=== PATIENT | female | born 1980 | race Caucasian/White ===

== ENCOUNTER 2018-09-22 12:35 | Inpatient (IN) | payer OTHER ==
[2018-09-22] MEDS ORDERED: METHYLERGONOVINE 0.2 MG INJ IM ×2 (13:30→21:00)
[2018-09-22] MEDS ORDERED: MISOPROSTOL 200 MCG TAB PR ×2 (13:30→21:00)
[2018-09-22] MEDS ORDERED: OXYTOCIN 30 UNITS/LR 500 ML IV ×2 (13:30→21:00)
[2018-09-22] MEDS ORDERED: CARBOPROST 250 MCG INJ IM ×2 (13:30→21:00)
[2018-09-22 13:42] LABS: ADD MAN DIFF? NO
[2018-09-22 13:44] LABS: BASOPHILS % 0.6 % (0.0-2.0); EOSINOPHILS # 0.1 10^3/ul (0.0-0.5); EOSINOPHILS % 1.7 % (0.0-7.0); HEMATOCRIT 32.4 % (37.0-47.0); HEMOGLOBIN 10.9 g/dl (12.0-16.0); LYMPHOCYTES # 1.3 10^3/ul (0.8-2.9); LYMPHOCYTES % 24.1 % (15.0-51.0); MEAN CORPUSCULAR HEMOGLOBIN 26.4 pg (29.0-33.0); MEAN CORPUSCULAR HGB CONC 33.6 g/dl (32.0-37.0); MEAN CORPUSCULAR VOLUME 78.5 fl (82.0-101.0); MEAN PLATELET VOLUME 10.2 fl (7.4-10.4); MONOCYTE # 0.4 10^3/ul (0.3-0.9); MONOCYTES % 7.9 % (0.0-11.0); NEUTROPHIL # 3.4 10^3/ul (1.6-7.5); NEUTROPHILS % 65.5 % (39.0-77.0); PLATELET COUNT 214 10^3/UL (140-415); RED BLOOD COUNT 4.13 10^6/ul (4.20-5.40); RED CELL DISTRIBUTION WIDTH 17.7 % (11.5-14.5)
[2018-09-22 13:44] LABS: WHITE BLOOD COUNT 5.2 10^3/ul (4.8-10.8)
[2018-09-22] MEDS: LACTATED RINGER'S 1,000 ML IV ×4 (13:50→20:34)
[2018-09-22 14:03] LABS: INR 0.84; PROTIME 11.6 Sec (11.9-14.9); PT RATIO 0.9
[2018-09-22 14:04] LABS: PARTIAL THROMBOPLASTIN TIME 22.6 Sec (23.0-35.0)
[2018-09-22] MEDS: CITRIC ACID/NA CITRATE 30 ML CUP PO (17:03)
[2018-09-22] MEDS: ONDANSETRON 4 MG INJ IV (17:04)
[2018-09-22] MEDS ORDERED: PHENYLephrine (100 MCG/ML) 10ML SYG (17:18)
[2018-09-22] MEDS ORDERED: OXYTOCIN 10 UNIT INJ (17:19)
[2018-09-22] MEDS ORDERED: morphine SULFATE/PF (10 MG/10 ML) INJ (17:19)
[2018-09-22] MEDS ORDERED: DEXAMETHASONE 4 MG/ML 1 ML INJ (17:41)
[2018-09-22] MEDS ORDERED: KETOROLAC 30 MG INJ (17:41)
[2018-09-22] MEDS ORDERED: ONDANSETRON 4 MG INJ (17:41)
[2018-09-22] MEDS ORDERED: MEPERIDINE 100 MG INJ (17:41)
[2018-09-22] MEDS ORDERED: METOCLOPRAMIDE 10 MG INJ (17:41)
[2018-09-22] MEDS: OXYTOCIN 30 UNITS/LR 500 ML IV ×2 (18:17→20:50)
[2018-09-22] MEDS: CEFAZOLIN 2 GM/50 ML (PMX) 50 ML IVPB (18:47)
[2018-09-22 19:37] LABS: HEPATITIS B SURFACE ANTIGEN NEGATIVE (NEGATIVE)
[2018-09-22] MEDS ORDERED: NA PHOSPHATE/BIPHOS 133 ML ENEMA PR (21:00)
[2018-09-22] MEDS ORDERED: HYDROCODONE/APAP (5/325) TAB PO ×2 (21:00→23:00)
[2018-09-22] MEDS ORDERED: NACL 0.9% 3 ML SYG IV (21:00)
[2018-09-22] MEDS ORDERED: IBUPROFEN 800 MG TAB PO (22:00)
[2018-09-22 22:31] LABS: RAPID PLASMA REAGIN NONREACTIVE (NR)
[2018-09-22] MEDS ORDERED: NALOXONE (0.4 MG/ML) INJ IV (23:00)
[2018-09-22] MEDS ORDERED: FENTAnyl 50 MCG/ML VIAL IV ×2 (23:00)
[2018-09-22] MEDS ORDERED: NALBUPHINE HCL (10 MG/1 ML) INJ IV (23:00)
[2018-09-22] MEDS ORDERED: ONDANSETRON 4 MG INJ IV ×2 (23:00)
[2018-09-22] MEDS ORDERED: DIPHENHYDRAMINE 50 MG INJ IV ×2 (23:00)
[2018-09-22] MEDS ORDERED: morphine 2 MG INJ IV ×2 (23:00)
[2018-09-22] MEDS ORDERED: MEPERIDINE 25 MG INJ IV (23:00)
[2018-09-22] MEDS ORDERED: METOCLOPRAMIDE 10 MG INJ IV (23:00)
[2018-09-22] MEDS ORDERED: OXYCODONE/ACETAMINOPHEN (5/325) TAB PO (23:00)
[2018-09-22] MEDS ORDERED: ACETAMINOPHEN 500 MG TAB PO (23:00)
[2018-09-22] MEDS ORDERED: HYDROmorphONE 0.5 MG/0.5 ML SYG IV ×2 (23:00)
[2018-09-22] MEDS ORDERED: EPHEDrine 25 MG/5 ML SYG IV (23:00)
[2018-09-22] MEDS ORDERED: HYDROmorphONE 1 MG/5 ML IV SYRINGE IV ×2 (23:00)
[2018-09-23] MEDS: OXYTOCIN 30 UNITS/LR 500 ML IV (06:18)
[2018-09-23] MEDS: KETOROLAC 30 MG INJ IV (10:58)
[2018-09-23 11:47] LABS: ADD MAN DIFF? NO
[2018-09-23 11:50] LABS: BASOPHILS % 0.5 % (0.0-2.0); EOSINOPHILS % 0.3 % (0.0-7.0); HEMATOCRIT 27.2 % (37.0-47.0); HEMOGLOBIN 8.9 g/dl (12.0-16.0); LYMPHOCYTES # 1.5 10^3/ul (0.8-2.9); LYMPHOCYTES % 16.9 % (15.0-51.0); MEAN CORPUSCULAR HEMOGLOBIN 25.9 pg (29.0-33.0); MEAN CORPUSCULAR HGB CONC 32.7 g/dl (32.0-37.0); MEAN CORPUSCULAR VOLUME 79.1 fl (82.0-101.0); MEAN PLATELET VOLUME 9.9 fl (7.4-10.4); MONOCYTE # 0.9 10^3/ul (0.3-0.9); MONOCYTES % 10.1 % (0.0-11.0); NEUTROPHIL # 6.3 10^3/ul (1.6-7.5); NEUTROPHILS % 71.9 % (39.0-77.0); PLATELET COUNT 174 10^3/UL (140-415); RED BLOOD COUNT 3.44 10^6/ul (4.20-5.40)
[2018-09-23 11:50] LABS: WHITE BLOOD COUNT 8.8 10^3/ul (4.8-10.8)
[2018-09-23] MEDS: LACTATED RINGER'S 1,000 ML IV (15:46)
[2018-09-24] MEDS: HYDROCODONE/APAP (5/325) TAB PO (00:17)
[2018-09-24] MEDS: LANOLIN HPA 1 PKT TOP (00:17)
[2018-09-24] MEDS: IBUPROFEN 800 MG TAB PO ×3 (05:28→21:15)
[2018-09-24] MEDS: POLYSACCHARIDE IRON COMPLEX CAP PO (15:16)
[2018-09-24] MEDS: DOCUSATE SODIUM 100 MG CAP PO ×2 (15:16→21:15)
[2018-09-25] MEDS: POLYSACCHARIDE IRON COMPLEX CAP PO ×2 (03:52→15:27)
[2018-09-25] MEDS: IBUPROFEN 800 MG TAB PO ×2 (06:10→15:27)
[2018-09-25] MEDS: MEASLES,MUMPS,RUBELLA VACCINE INJ SC* (09:00)
[2018-09-25] MEDS: DIPHTH/TET/ACEL PERTUSS (ADULT) 0.5 ML VIAL IM* (09:00)
[2018-09-25] MEDS: LANOLIN HPA 1 PKT TOP (09:21)
[2018-09-25] MEDS: DOCUSATE SODIUM 100 MG CAP PO (09:21)
== END 2018-09-25 19:20 | disposition home or self-care (01) | DRG 788 ==
LOC: L-D 12:35 → PP1 20:22
PROVIDERS: Obstetrics & Gynecology
PROC: 10D00Z1 Extraction of Products of Conception, Low, Open Approach (ICD-10-PCS; principal; 2018-09-22 15:30)
DX: O34.29 Maternal care due to uterine scar from other previous surgery (principal); O99.89 Other specified diseases and conditions complicating pregnancy, childbirth and the puerperium; N73.6 Female pelvic peritoneal adhesions (postinfective); O90.81 Anemia of the puerperium; D64.9 Anemia, unspecified; Z3A.39 39 weeks gestation of pregnancy; Z37.0 Single live birth
CPT/HCPCS: 85025; 85610; 85730; 86592; 86850; 86900; 86901; 87340; 88305; 99464